=== PATIENT | male | born 1970 | race Caucasian/White ===

== ENCOUNTER 2019-12-29 06:15 | Day surgery (SDC) | payer OTHER ==
[~2019-12-29] VITALS: Ht 170.2 cm; Wt 81.6 kg
[2019-12-29] MEDS ORDERED: SUCCINYLCHOLINE CHLORIDE 20 MG/ML(QUELICIN) IVP ONE (07:19)
[2019-12-29] MEDS ORDERED: DEXAMETHASONE SOD PHOSPHATE 4 MG/ML VIAL IVP ONE (07:19)
[2019-12-29] MEDS ORDERED: ePHEDrine sulfate 50 MG/ML VIAL IM ONE (07:19)
[2019-12-29] MEDS ORDERED: PROPOFOL 200MG/ 20ML VIAL (DIPRIVAN) IV ONE (07:19)
[2019-12-29] MEDS ORDERED: WATER FOR IRRIGATION,STERILE 1,000 ML IRRIG.SOLN IR ONE (07:19)
[2019-12-29] MEDS ORDERED: MIDAZOLAM HCL 5 MG/5 ML VIAL IVP ONE (07:19)
[2019-12-29] MEDS ORDERED: LIDOCAINE/EPI 1% 1:100000 20 ML VIAL INJ ONE (07:19)
[2019-12-29] MEDS ORDERED: LR 1,000 ML IV.SOLN IV ONE (07:19)
[2019-12-29] MEDS ORDERED: fentaNYL CITRATE/PF 100 MCG/2 ML AMP IVP ONE (07:19)
[2019-12-29] MEDS ORDERED: DESFLURANE 15 MIN GAS INH ONE (07:19)
[2019-12-29] MEDS ORDERED: MUPIROCIN 2% TOPICAL OINTMENT 22 GM TP ONE (07:19)
[2019-12-29] MEDS ORDERED: NS IRRIG SOLN 1000 ML IR ONE (07:19)
[2019-12-29] MEDS ORDERED: ONDANSETRON HCL 4 MG/2 ML VIAL IVP PRN (09:15)
[2019-12-29] MEDS ORDERED: HYDROmorphone 1 MG INJ. 1 MG/ML AMPUL IVP PRN (09:15)
[2019-12-29 09:57] VITALS: BP_SYST 122
== END 2019-12-29 12:10 | disposition home or self-care (01) ==
LOC: SMU 06:15 → SDS 06:15
PROVIDERS: ATTEND Otolaryngology
DX: J34.2 Deviated nasal septum (principal); J34.89 Other specified disorders of nose and nasal sinuses; J30.1 Allergic rhinitis due to pollen; J34.3 Hypertrophy of nasal turbinates; I10 Essential (primary) hypertension; E78.00 Pure hypercholesterolemia, unspecified; Z79.899 Other long term (current) drug therapy
CPT/HCPCS: 30140; 30520; 88304; J0330; J1100; J2250; J2704; J3010; J7120; 88311